=== PATIENT | female | born 1945 | race Caucasian/White ===

== ENCOUNTER 2016-11-09 22:56 | Inpatient (IN) | payer OTHER ==
[~2016-11-09] VITALS: Ht 153.7 cm; Wt 53.5 kg
[~2016-11-09 22:56] MED LIST: ATV5 PO; METO25TA56 PO; ONDA4TAB46 PO; ZNTT/150 PO
--- NOTE | 2016-11-09 23:32 | EMERGENCY ROOM VISIT NOTE ---
History Report prepared by Summer: Clemencia Ramirez Under the Supervision of: Dr. Silvino Grant M.D. First contact with patient: 23:23 Chief Complaint: NEURO SYMPTOMS Stated Complaint: STRANGE FEELING/NUMBNESS R HAND,LEGS,FACE Nursing Triage Summary: Patient reports new onset of tinglyness in extremities. Patient reports history of reynauds disease. History of Present Illness The patient is a 70 year old female who presents to the Emergency Room with complaints of numbness in her right hand. She also reports having tingling in her legs bilaterally and her face. She states that her symptoms started on October 24. The patient has a history of arthritis and Raynaud's disease. She also reports having a headache and nausea, but denies having shortness of breath and chest pain. Source of History: patient Onset: October 24 Position: hand (right) Quality: numbness Associated Symptoms: + headache, + nausea, No chest pain, No SOB Review of Systems See HPI for pertinent positives & negatives. A total of 10 systems reviewed and were otherwise negative. Past Medical & Surgical Medical Problems: (1) TIA (transient ischemic attack) Family History No pertinent family history stated. Social History Smoking Status: Never Smoker Marital Status: Current/Historical Medications Scheduled Calcium W/ Magnesium (Calcium Magnesium 750), 1 TAB PO DAILY @ NOON Cholecalciferol (Vitamin D3), 1 TAB PO DAILY Metoprolol Tartrate (Lopressor) (Lopressor), 12.5 MG PO BID Allergies Coded Allergies: No Known Allergies (Unverified , 11/10/16) Physical Exam Vital Signs Date Time Temp Pulse Resp B/P (MAP) Pulse Ox O2 Delivery O2 Flow Rate FiO2 11/10/16 00:53 78 18 175/89 98 Room Air 11/09/16 23:26 94 11/09/16 23:03 36.4 86 18 208/99 98 Room Air Physical Exam GENERAL: Patient is anxious appearing and in no acute distress. HEENT: No acute trauma, normocephalic atraumatic, mucous membranes moist, no nasal congestion, no scleral icterus. NECK: No stridor, no adenopathy, no meningismus, trachea is midline. LUNGS: No dyspnea. Clear to auscultation and equal bilaterally. No wheeze, no rhonchi. HEART: Regular rate and rhythm. No murmurs, rubs, gallops appreciated. ABDOMEN: Soft, nontender, bowel sounds positive, no masses appreciated, no peritonitis. BACK: No midline tenderness, no CVA tenderness EXTREMITIES: Normal motion all extremities, no cyanosis, no edema. NEUROLOGIC: Alert and oriented, no acute motor or sensory deficits, no focal weakness, cranial nerves grossly intact. SKIN: Slight mottling of right hand which she says is chronic. Medical Decision & Procedures ER Provider Diagnostic Interpretation: X ray results are stated below per my interpretation and the radiologist's interpretation. X ray results are stated below per my interpretation: Chest: 1 view: No infiltrate, no effusion, normal cardiac border. Mild flattening of diaphragms. CT results as stated below per interpretation by me and the radiologist: CT HEAD: No ICH, mass effect or edema. No evidence of acute cortical stroke. Periventricular small vessel ischemic change. Left maxillary mucosal thickening. Laboratory Results Test 11/09/16 23:50 RDW Standard Deviation 41.0 fL (36.4-46.3) RDW Coefficient of Variation 12.8 % (11.5-14.5) White Blood Count 7.04 K/uL (4.8-10.8) Red Blood Count 4.57 M/uL (4.2-5.4) Hemoglobin 13.7 g/dL (12.0-16.0) Hematocrit 39.7 % (37-47) Mean Corpuscular Volume 86.9 fL (80-100) Mean Corpuscular Hemoglobin 30.0 pg (25-34) Mean Corpuscular Hemoglobin Concent 34.5 g/dl (32-36) Platelet Count 227 K/uL (130-400) Mean Platelet Volume 11.0 fL (7.4-10.4) Neutrophils (%) (Auto) 78.6 % Lymphocytes (%) (Auto) 13.6 % Monocytes (%) (Auto) 7.4 % Eosinophils (%) (Auto) 0.0 % Basophils (%) (Auto) 0.3 % Neutrophils # (Auto) 5.53 K/uL (1.4-6.5) Lymphocytes # (Auto) 0.96 K/uL (1.2-3.4) Monocytes # (Auto) 0.52 K/uL (0.11-0.59) Eosinophils # (Auto) 0.00 K/uL (0-0.5) Basophils # (Auto) 0.02 K/uL (0-0.2) Immature Granulocyte % (Auto) 0.1 % Immature Granulocyte # (Auto) 0.01 K/uL (0.00-0.02) Erythrocyte Sedimentation Rate 18 mm/hr (0-21) Prothrombin Time 10.3 SECONDS (9.0-12.0) Prothromb Time International Ratio 1.0 (0.9-1.1) Activated Partial Thromboplast Time 30.6 SECONDS (21.0-31.0) Partial Thromboplastin Ratio 1.2 Est Creatinine Clear Calc Drug Dose 51.8 ml/min Magnesium Level 2.2 mg/dl (1.8-2.4) Total Bilirubin 0.5 mg/dl (0.2-1) Direct Bilirubin 0.1 mg/dl (0-0.2) Aspartate Amino Transf (AST/SGOT) 27 U/L (15-37) Alanine Aminotransferase (ALT/SGPT) 31 U/L (12-78) Alkaline Phosphatase 76 U/L (45-117) Troponin I < 0.015 ng/ml (0-0.045) C-Reactive Protein < 0.29 mg/dl (0-0.29) Total Protein 8.6 gm/dl (6.4-8.2) Albumin 4.5 gm/dl (3.4-5.0) Thyroid Stimulating Hormone (TSH) 2.040 uIu/ml (0.300-4.500) Lyme Disease IgG Antibody NEG (NEG) Lyme Disease IgM Antibody NEG (NEG) Laboratory results as reviewed by me. Medications Administered Medications (Trade) Dose Ordered Sig/Dru Route Start Time Stop Time Status Last Admin Dose Admin Labetalol HCl (Normodyne IV) 10 mg NOW STAT IV 11/09/16 23:33 11/09/16 23:36 DC 11/10/16 00:00 10 MG Potassium Chloride (Klor-Con M10) 40 meq NOW STAT PO 11/10/16 00:54 11/10/16 01:00 DC 11/10/16 00:54 40 MEQ ECG Indication: other (tingling in extremities ) Rate (beats per minute): 85 Rhythm: normal sinus Findings: no acute ischemic change, no ectopy, other (septal Q Waves; left ventricular hypertrophy ) Comparison ECG Date: no prior available ED Course 2324: The patient was evaluated in room C4. A complete history and physical exam was performed. 2233: Ordered Labetalol HCl 10 mg IV. 0049: The patient reports that her symptoms have resolved with improvement of her blood pressure. 0105: Upon reevaluation, the patient is resting comfortably. Discussed results and treatment plan with the patient. She verbalized understanding and agreement with the treatment plan. The patient will be evaluated for further management. Medical Decision Differential: Sepsis, Infectious (UTI/Pneumonia/Meningitis/etc), Metabolic/ Electrolyte Abnormality, Cardiac, Hepatic, Endocrine, Toxicologic, Neurologic, amongst other pathologies entertained. Medication Reconciliation: I attest that I have personally reviewed the patient 's current medication list. Blood pressure screening: Patient was found to have an elevated blood pressure and was referred to their primary doctor for recheck and further treatment. 70 yr old female arrives with right arm paresthesias along with periodic other paresthesias over the last 2 weeks. Associated nausea/headache. No evidence meningitis. No history to suggest dissection. CT Head negative for acute findings. Quite hypertensive and symptoms resolved with improvement in BP. No acute neuro deficits on examination. I do not feel she is TPA candidate given minimal symptoms and 2 weeks of on and off symptoms. I feel given her history she will need rule out for stroke, though discussed with her that there are multiple other causes that could result in her symptoms. Consults Time Called: 48 Consulting Physician: Dr. Castro- Internal Medicine Returned Call: 49 Discussed the patient's case. The patient will be evaluated for further treatment and disposition. Impression Primary Impression: Hypertensive emergency Additional Impression: Paresthesia of right arm Scribe Attestation The scribe's documentation has been prepared under my direction and personally reviewed by me in its entirety. I confirm that the note above accurately reflects all work, treatment, procedures, and medical decision making performed by me. Departure Information Dispostion Being Evaluated By Hospitalist Referrals Prema Stack D.O. (PCP) Patient Instructions My [facility] Problem Qualifiers
[2016-11-09] MEDS ORDERED: LABETALOL HCL IV 5 MG/ML 20ML IV STA (23:33)
[2016-11-10] VITALS (8 sets, daily range): BP systolic 131–179; BP diastolic 66–81; PULSE 63–85; TEMP 36.4–37.1; O2SAT 97–100; Ht 153.7 cm; Wt 53.5 kg
[2016-11-10 00:07] LABS: BASO % 0.3 %; BASO ABS # 0.02 K/uL (0-0.2); COMPLETE YES; HEMATOCRIT 39.7 % (37-47); IG% 0.1 %; LYMPH % 13.6 %; LYMPH ABS # 0.96 K/uL (1.2-3.4); MEAN CELL VOLUME 86.9 fL (80-100); MEAN CORPUSCULAR HGB CONC 34.5 g/dl (32-36); MONO % 7.4 %; NEUT % 78.6 %; PLATELET COUNT 227 K/uL (130-400); RED BLOOD COUNT 4.57 M/uL (4.2-5.4); WHITE BLOOD COUNT 7.04 K/uL (4.8-10.8)
[2016-11-10] MEDS ORDERED: CHOL1000 PO (00:13)
[2016-11-10] MEDS ORDERED: CALC1TAB25 PO (00:15)
[2016-11-10 00:16] LABS: PARTIAL THROMBOPLASTIN RATIO 1.2; PROTHROMBIN TIME (PATIENT) 10.3 SECONDS (9.0-12.0)
[2016-11-10 00:34] LABS: BLOOD UREA NITROGEN 15 mg/dl (7-18); BUN/CREATININE RATIO 20.1 (10-20); CALCIUM 8.9 mg/dl (8.5-10.1); CARBON DIOXIDE 25 mmol/L (21-32); CHLORIDE 100 mmol/L (98-107); CREATININE 0.74 mg/dl (0.60-1.20); GLUCOSE 117 mg/dl (70-99); POTASSIUM 3.2 mmol/L (3.5-5.1); SODIUM 135 mmol/L (136-145)
[2016-11-10 00:38] LABS: C-REACTIVE PROTEIN < 0.29 mg/dl (0-0.29)
[2016-11-10] MEDS ORDERED: POTASSIUM CHLORIDE 10 MEQ TABCR PO STA (00:54)
[2016-11-10 01:07] LABS: LYME DISEASE AB IGG NEG (NEG); LYME DISEASE AB IGM NEG (NEG)
[2016-11-10 01:17] LABS: MAGNESIUM 2.2 mg/dl (1.8-2.4)
[2016-11-10] MEDS ORDERED: ASPIRIN 81 MG CHEW ONE (01:44)
[2016-11-10] MEDS ORDERED: NITROGLYCERIN 0.4 MG SL PER TAB CHARGE SL PRN (02:00)
[2016-11-10] MEDS ORDERED: PHARMACIST DISCHARGE MED REC CONSULT PRN (02:00)
[2016-11-10] MEDS ORDERED: ACETAMINOPHEN 325 MG TAB PO PRN (02:00)
[2016-11-10] MEDS ORDERED: ASPIRIN 81 MG CHEW PO STA (02:10)
[2016-11-10] MEDS ORDERED: NSS + 20MEQ KCL 1000ML 1,000 ML IV SCH (02:15)
[2016-11-10 02:25] LABS: AST/SGOT 27 U/L (15-37)
[2016-11-10] MEDS ORDERED: IV FLUIDS COMPLETED PRN (02:30)
[2016-11-10 02:31] LABS: ALKALINE PHOSPHATASE 76 U/L (45-117); ALT/SGPT 31 U/L (12-78)
[2016-11-10] MEDS ORDERED: ENOXAPARIN 30 MG/0.3 ML SYR SC SCH (04:00)
[2016-11-10] MEDS ORDERED: NSS + 20MEQ KCL 1000ML 1,000 ML IV ONE (04:15)
--- NOTE | 2016-11-10 07:06 | DIAGNOSTIC IMAGING REPORT ---
HEAD CT NONCONTRAST CT DOSE: 537.48 mGy.cm HISTORY: right arm/leg paresthesias TECHNIQUE: Multiaxial CT images of the head were performed without the use of intravenous contrast. Automated exposure control was utilized for this study. Comparison: None. Findings: Mild mucosal thickening within the left maxillary sinus. The calvarium and skull base are intact. There is no mass, hematoma, midline shift, acute infarct. White matter hypodensity is nonspecific but suggestive of microvascular ischemic change. The ventricles and sulci demonstrate mild age-related involutional changes. Impression: No acute intracranial abnormality. Atrophy and microvascular ischemic changes. Electronically signed by: Nicho Garvey M.D. 11/10/2016 7:05 AM Dictated Date/Time: 11/10/2016 7:03 AM
[2016-11-10 07:07] LABS: BASO % 0.7 %; BASO ABS # 0.04 K/uL (0-0.2); COMPLETE YES; EOS % 0.4 %; HEMATOCRIT 36.1 % (37-47); IG% 0.2 %; LYMPH % 25.6 %; LYMPH ABS # 1.39 K/uL (1.2-3.4); MEAN CORPUSCULAR HEMOGLOBIN 28.9 pg (25-34); MEAN CORPUSCULAR HGB CONC 33.2 g/dl (32-36); MEAN PLATELET VOLUME 10.6 fL (7.4-10.4); MONO % 10.3 %; NEUT % 62.8 %; PLATELET COUNT 225 K/uL (130-400); RED BLOOD COUNT 4.15 M/uL (4.2-5.4); WHITE BLOOD COUNT 5.42 K/uL (4.8-10.8)
[2016-11-10 07:47] LABS: BUN/CREATININE RATIO 16.8 (10-20); CALCIUM 8.1 mg/dl (8.5-10.1); CHOLESTEROL/HDL RATIO 2.2; CREATININE 0.61 mg/dl (0.60-1.20); POTASSIUM 4.2 mmol/L (3.5-5.1)
--- NOTE | 2016-11-10 08:49 | DIAGNOSTIC IMAGING REPORT ---
CHEST ONE VIEW PORTABLE HISTORY: stroke symptoms COMPARISON: None. FINDINGS: The lungs are clear. Cardiac silhouette is normal in size. No pleural effusions. No pneumothorax. IMPRESSION: No acute process. Electronically signed by: Nicho Garvey M.D. 11/10/2016 8:48 AM Dictated Date/Time: 11/10/2016 8:44 AM
--- NOTE | 2016-11-10 08:52 | HISTORY & PHYSICAL EXAMINATION ---
DATE OF ADMISSION: 11/10/2016 PATIENT'S PRIMARY CARE DOCTOR: Dr. Prema Stack CHIEF COMPLAINT: Numbness in the face, hands and lower extremities. HISTORY OF PRESENT ILLNESS: Medical history is significant for hypertension, hyperlipidemia, anxiety as per records and Raynaud's syndrome. In the last 2 weeks, the patient noted tingling and numbness in the right upper extremity, both sides of her face and legs. Transient symptoms followed by four more recurrences in the next 2 weeks. Last night, the symptoms distressing, more prolonged. achy frontal ZHANG sx She admits to some stress at home. Patient was brought to the Emergency Room. Had subsequent improvement in symptoms. MEDICAL HISTORY: As above. Recent Keflex course for R thumb cellulitis, improved. SURGERIES: She has had a bowel obstruction surgery, appendectomy and gynecologic procedures. HOME MEDICATIONS: Include; metoprolol, vitamin D, calcium. ALLERGIES: No known drug allergies. FAMILY HISTORY: Stroke. PERSONAL SOCIAL HISTORY: Nonsmoker. No chronic intake of alcoholic beverages. Retired RN. REVIEW OF SYSTEMS: As per HPI, all other ROS negative. PHYSICAL EXAMINATION: VITAL SIGNS: Blood pressure was noted to be 208/99 later 178/89, pulse rate 94, RR 20 T 37 O2sats 98 on room air. GENERAL: Noted to be slightly anxious, in no respiratory distress, looks younger for stated age. SKIN: Normal color. HEENT: [place] palpebral conjunctivae. Dry mucosa. NECK: No JVD. Supple. CHEST: Clear to auscultation. HEART: Regular rate and rhythm. ABDOMEN: Soft. NT EXTREMITIES: min R thumb swelling. min tenderness NEUROLOGIC: No gross focality. LABORATORIES: Hemoglobin was noted to be 13.7, hematocrit 39.7, white cell count 7 and platelets 227. Sodium 135, K 3.2 chloride 100, CO2 28, BUN 15, creatinine 0.7 and glucose was noted to be 117. CT of the head initial read no acute pathology. Chest x-ray as per my interpretation : mild hyperinflation. EKG as per my interpretation; rate 85, normal sinus rhythm, left atrial enlargement, LVH, poor R-wave progression, septal infarct. January 2016 lipid panel; cholesterol 245, LDL 141, HDL 92, TG 70 ASSESSMENT: 1. Recurrent transient ischemic attack symptoms. 2. Hypertensive urgency secondary to above. 3. Hyperlipidemia, not on statin therapy. 4. Hypokalemia secondary to diarrhea, rule out Clostridium difficile recent Keflex rx for cellulitis. PLAN: Observation PCU, neuro checks MRI/MRA head RE recurrent TIAs ASA for now for secondary stroke prevention pending MRI results. Check lipid profile. Replace potassium. stool c. diff. DVT prophylaxis, Lovenox subQ. Full code. Patient requesting to be set up with Dr. Mckeon for PCP services upon discharge from the hospital. SAMUEL
[2016-11-10] MEDS: ENOXAPARIN 30 MG/0.3 ML SYR SC SCH ×2 (09:00→10:29)
[2016-11-10] MEDS: METOPROLOL TARTRATE 25 MG TAB PO SCH ×2 (10:28→21:00)
--- NOTE | 2016-11-10 10:49 | Progress Note ---
Medicine Progress Note Date & Time of Visit: Nov 10, 2016 at 10:42. Subjective patient seen resting in bed comfortable in good spirits states she had burning sensation on her right hand overnight, lasting few hours , resolved otherwise no other new focal neuro symptoms no chest pain, dyspnea, palpitations, dizziness states she had some nausea this morning, no vomiting no other symptoms would like to move more today Objective Last 8 Hrs Date Time Temp Pulse Resp B/P (MAP) Pulse Ox O2 Delivery O2 Flow Rate FiO2 11/10/16 07:27 36.6 77 17 147/75 (99) 97 Room Air 11/10/16 04:00 Room Air 11/10/16 03:41 36.5 70 20 162/66 (98) 98 Room Air Physical Exam: General- oriented x 3, not in distress, speaks in sentences with no effort Head- atraumatic Eyes- EOMI, anicteric ENT- oropharynx clear Neck- supple, no JVD, no adenopathy, no thyromegaly Lungs- clear breath sounds bilaterally, no rales/wheezes Heart- regular rhythm; no murmur, normal rate Abdomen- normal bowel sounds, soft, nontender Extremities- no pretibial edema, no calf tenderness; peripheral pulses intact right hand- small areas of petechiae on fingers warm, good pulses Neuro- alert, oriented x 3; EOMI; no facial palsy; no dysarthria; motor 5/5 bilaterally; sensation 100% on all ext Skin- warm & dry Laboratory Results: Last 24 Hours Test 11/09/16 23:50 11/10/16 06:57 White Blood Count 7.04 K/uL 5.42 K/uL Red Blood Count 4.57 M/uL 4.15 M/uL Hemoglobin 13.7 g/dL 12.0 g/dL Hematocrit 39.7 % 36.1 % Mean Corpuscular Volume 86.9 fL 87.0 fL Mean Corpuscular Hemoglobin 30.0 pg 28.9 pg Mean Corpuscular Hemoglobin Concent 34.5 g/dl 33.2 g/dl Platelet Count 227 K/uL 225 K/uL Mean Platelet Volume 11.0 fL 10.6 fL Neutrophils (%) (Auto) 78.6 % 62.8 % Lymphocytes (%) (Auto) 13.6 % 25.6 % Monocytes (%) (Auto) 7.4 % 10.3 % Eosinophils (%) (Auto) 0.0 % 0.4 % Basophils (%) (Auto) 0.3 % 0.7 % Neutrophils # (Auto) 5.53 K/uL 3.40 K/uL Lymphocytes # (Auto) 0.96 K/uL 1.39 K/uL Monocytes # (Auto) 0.52 K/uL 0.56 K/uL Eosinophils # (Auto) 0.00 K/uL 0.02 K/uL Basophils # (Auto) 0.02 K/uL 0.04 K/uL RDW Standard Deviation 41.0 fL 41.1 fL RDW Coefficient of Variation 12.8 % 12.8 % Immature Granulocyte % (Auto) 0.1 % 0.2 % Immature Granulocyte # (Auto) 0.01 K/uL 0.01 K/uL Erythrocyte Sedimentation Rate 18 mm/hr Prothrombin Time 10.3 SECONDS Prothromb Time International Ratio 1.0 Activated Partial Thromboplast Time 30.6 SECONDS Partial Thromboplastin Ratio 1.2 Sodium Level 135 mmol/L 138 mmol/L Potassium Level 3.2 mmol/L 4.2 mmol/L Chloride Level 100 mmol/L 105 mmol/L Carbon Dioxide Level 25 mmol/L 26 mmol/L Anion Gap 10.0 mmol/L 7.0 mmol/L Blood Urea Nitrogen 15 mg/dl 10 mg/dl Creatinine 0.74 mg/dl 0.61 mg/dl Est Creatinine Clear Calc Drug Dose 51.8 ml/min 61.4 ml/min Estimated GFR () 93.8 105.0 Estimated GFR (Non- 80.9 90.6 BUN/Creatinine Ratio 20.1 16.8 Random Glucose 117 mg/dl 97 mg/dl Calcium Level 8.9 mg/dl 8.1 mg/dl Magnesium Level 2.2 mg/dl Total Bilirubin 0.5 mg/dl Direct Bilirubin 0.1 mg/dl Aspartate Amino Transf (AST/SGOT) 27 U/L Alanine Aminotransferase (ALT/SGPT) 31 U/L Alkaline Phosphatase 76 U/L Troponin I < 0.015 ng/ml C-Reactive Protein < 0.29 mg/dl Total Protein 8.6 gm/dl Albumin 4.5 gm/dl Thyroid Stimulating Hormone (TSH) 2.040 uIu/ml Lyme Disease IgG Antibody NEG Lyme Disease IgM Antibody NEG Triglycerides Level 34 mg/dl Cholesterol Level 184 mg/dl HDL Cholesterol 84 mg/dl LDL Cholesterol, Calculated 93 mg/dl VLDL Cholesterol, Calculated 7 mg/dl Cholesterol/HDL Ratio 2.2 Assessment & Plan 70 year old female with history of hypertension, Raynaud's presenting with episodes of paresthesias on the face and extremities. PARESTHESIAS, FACE AND EXTREMITIES - r/o TIAs, CVA from Raynaud's? - CT head: microvascular changes Brain MRI, MRA: pending Carotid Doppler US: pending - Aspirin 81mg started ff up studies appreciate Neuro input Hypertensive urgency secondary to above -- received 1 dose of Labetalol -- BP improving on usual Metoprolol BID Hyperlipidemia, not on statin therapy. -- LDL 93 monitor as outpatient Hypokalemia secondary to diarrhea, rule out Clostridium difficile recent Keflex rx for cellulitis. -- repleted Mg normal -- monitor DVT prophylaxis, Lovenox subQ. Full code. Patient requesting to be set up with Dr. Mckeon for PCP services upon discharge from the hospital. Current Inpatient Medications: Current Inpatient Medications Medications (Trade) Dose Ordered Sig/Dru Route Start Time Stop Time Status Last Admin Dose Admin Acetaminophen (Tylenol Tab) 650 mg Q4H PRN PO 11/10/16 02:00 12/10/16 01:59 Nitroglycerin (Nitrostat Tab) 0.4 mg UD PRN SL 11/10/16 02:00 12/10/16 01:59 Aspirin (Ecotrin Tab) 81 mg QAM PO 11/11/16 09:00 12/11/16 08:59 Miscellaneous Information (Pharmacist Discharge Med Rec Consult) 1 ea UD PRN N/A 11/10/16 02:00 12/10/16 01:59 Metoprolol Tartrate (Lopressor Tab) 12.5 mg BID PO 11/10/16 09:00 12/10/16 08:59 11/10/16 10:28 12.5 MG Miscellaneous (Iv Fluids Completed) 1 ea PRN PRN N/A 11/10/16 02:30 11/10/17 02:29 Enoxaparin Sodium (Lovenox Inj) 30 mg Q24H SC 11/10/16 09:00 12/10/16 08:59 Potassium Chloride/Sodium Chloride 1,000 ml @ 50 mls/hr Q20H ONCE IV 11/10/16 04:15 12/10/16 02:14 Ondansetron HCl (Zofran Inj) 4 mg Q6H PRN IV. 11/10/16 10:00 12/10/16 09:59
--- NOTE | 2016-11-10 13:46 | DIAGNOSTIC IMAGING REPORT ---
Brain MRA HISTORY: Right arm and leg paresthesias. Stroke - Attention to [place] TECHNIQUE: 3-D [id number] MRA of the brain was performed without contrast. COMPARISON STUDY: None. FINDINGS: Visualized intracranial internal carotid arteries, distal vertebral arteries, and basilar artery are widely patent. There is no significant stenosis, occlusion, or aneurysm seen within the bilateral ACAs, MCAs, or molasses preparer. IMPRESSION: No significant stenosis, occlusion, or aneurysm within the [place]. Electronically signed by: Nicho Garvey M.D. 11/10/2016 1:44 PM Dictated Date/Time: 11/10/2016 1:42 PM
--- NOTE | 2016-11-10 14:20 | DIAGNOSTIC IMAGING REPORT ---
BILATERAL CAROTID DOPPLER STUDY HISTORY: Right arm and leg paresthesias. r/o tia/cva COMPARISON: None. TECHNIQUE: Real-time, grayscale, and color Doppler sonography of the carotid arteries was performed. Imaging reviewed in the transverse and longitudinal planes. All measurements were calculated based on NASCET criteria. FINDINGS: Antegrade flow is seen in the bilateral vertebral arteries. The brachial pressures are hemodynamically similar. The peak systolic velocity within the right ICA is 64 cm/s. The right systolic ratio is 1. The peak systolic velocity within the left ICA is 91 cm/s. The left systolic ratio is 1.3. IMPRESSION: No hemodynamically significant stenosis seen within the carotid arteries. Electronically signed by: Nicho Garvey M.D. 11/10/2016 2:19 PM Dictated Date/Time: 11/10/2016 2:18 PM
--- NOTE | 2016-11-10 14:31 | DIAGNOSTIC IMAGING REPORT ---
Brain MRI WITHOUT CONTRAST HISTORY: Right-sided arm and face paresthesias. Stroke TECHNIQUE: Multiplanar multisequence MRI of the brain was performed without the use of contrast. COMPARISON STUDY: Head CT 11/10/2016. FINDINGS: There is no mass, hematoma, midline shift, or acute infarct. Mild mucosal thickening within the left maxillary sinus. The mastoid air cells are clear. The ventricles and sulci are within normal limits. Scattered foci of T2 hyperintensity seen within the periventricular and subcortical white matter are nonspecific but suggestive of mild microvascular ischemic changes. The major vascular flow voids at the skull base are well-maintained. IMPRESSION: No acute intracranial abnormality. Scattered foci of T2 hyperintensity seen within the periventricular and subcortical white matter are nonspecific but favor microvascular ischemic change. Electronically signed by: Nicho Garvey M.D. 11/10/2016 2:14 PM Dictated Date/Time: 11/10/2016 2:09 PM
--- NOTE | 2016-11-10 16:03 | NEUROLOGY CONSULTATION ---
DATE OF CONSULTATION: 11/10/2016 REASON FOR CONSULTATION: Possible transient ischemic attack. 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 In early September, she was treated for cellulitis of her right thumb with Keflex for 10 days. Beginning about 2-1/2 weeks ago, the patient was holding something, I believe a flowerpot. The right hand became tingly and then fairly soon thereafter, both legs began tingling and the right face tingled. This lasted 20 minutes, was not accompanied by headache or any other neurologic symptoms. She may have had some palpitations accompanying that. She recovered without residual. She has intermittently had the same symptoms, although for the most part it begins with tingling in the right hand, then tingling in both legs and tingling in the entire face. There is again no headache. No diplopia, dysarthria, dysphagia, vertigo, unilateral weakness, numbness or facial droop. She has recently been well other than the cellulitis. She lost several pounds while taking Keflex. On Friday night, she noted her right pinky felt cold. She had the aforementioned tingling. She felt uneasy. She had the facial tingling and some mild nausea, again lasting a typical amount of time. She has not had any recent head or neck trauma, chiropractic manipulation, medical or dental procedures. She has not had any chest pain. Occasional palpitations. No shortness of breath. No peripheral edema. PAST MEDICAL HISTORY: As above. No history of [place], stroke, TIA, cancer. PAST SURGICAL HISTORY: Volvulus exploratory for possible bowel obstruction, appendectomy, D&E, ectopic . HOME MEDICATIONS: Metoprolol, flaxseed, vitamin D, calcium. ALLERGIES: No allergies. FAMILY HISTORY: Mother had a carotid endarterectomy and of a primary peritoneal carcinomatosis. Father had stroke, coronary artery disease. Brother, renal cell carcinoma. A sister with glomerulonephritis. REVIEW OF SYSTEMS: As above. LABORATORY DATA: White count 7, H&H 13.7/39, platelet count 227. Sed rate 18. PT 10.3, PTT 30.6. Sodium 135, potassium 3.2, BUN and creatinine 15/0.74. Random glucose 117. Transaminases normal. Total protein 8.6. TSH 2. Serology negative for Lyme. Electrocardiogram: Sinus rhythm, possible left atrial enlargement, left ventricular hypertrophy, cannot rule out septal infarct. CT of the head noncontrast, atrophy and microvascular ischemic changes. PHYSICAL EXAMINATION: VITAL SIGNS: 36.6, 77, 17, 147/75, 97%. GENERAL: The patient is awake and alert. Her speech and language are unremarkable. There is no aphasia. No right/left confusion. Fund of knowledge is excellent. NECK: There are no carotid bruits. HEART: No heart murmurs. Regular rate and rhythm. LUNGS: Clear. ABDOMEN: Soft and nontender. EXTREMITIES: No calf swelling or tenderness is noted. Peripheral pulses in the feet are intact. No temporal artery tenderness is noted. Normal temporal artery pulsation. HEENT: Head is normocephalic, atraumatic. Pupils are equal, round, reactive to light. The optic nerves are unremarkable. There are normal forbes, motility, facial sensation and symmetry. Speech and language are normal. Tongue is midline. Motor: No resting tremor or cogwheel rigidity. Full strength, no drift. Normal rapid alternating movements. Symmetric reflexes. Downgoing toes. [id number] is mildly tremulous. Pbyy-nv-[id number] is normal. Sensation is intact to light touch, temperature and vibration. Tinel's is positive over the right median nerve. IMPRESSION: Recurrent episodes and frequent recurrent episodes of paresthesias in face, right hand and bilateral legs leg, the localization of which, given their extent and distribution would have to be brainstem without other brainstem signs or symptoms. PLAN: MRI brain, I think that should be revealing if this is ischemic. MRA of the neck and [place]. The patient declines any IV dye because her sister has had glomerulonephritis. If the quality of the MRA of the neck is suboptimal, then the patient will need a carotid ultrasound. I agree with echocardiography and telemetric monitoring. I would check her lipid status and if her lipids are elevated, would recommend statin therapy, with a goal LDL of less than 70. I see no significant electrolyte imbalance that would account for her neurologic symptoms. Antiplatelet therapy with aspirin is very reasonable. [facility]
[2016-11-11] VITALS (8 sets, daily range): BP systolic 156–200; BP diastolic 77–94; PULSE 62–81; TEMP 36.4–36.8; O2SAT 96–99
[2016-11-11 06:17] LABS: BUN/CREATININE RATIO 20.6 (10-20); CALCIUM 8.3 mg/dl (8.5-10.1); CREATININE 0.77 mg/dl (0.60-1.20); MAGNESIUM 2.2 mg/dl (1.8-2.4); POTASSIUM 3.6 mmol/L (3.5-5.1)
[2016-11-11] MEDS: METOPROLOL TARTRATE 25 MG TAB PO SCH ×2 (08:31→17:02)
[2016-11-11] MEDS: ASPIRIN 81 MG ECTAB PO SCH (08:31)
[2016-11-11] MEDS: ENOXAPARIN 30 MG/0.3 ML SYR SC SCH (08:31)
--- NOTE | 2016-11-11 10:25 | Progress Note ---
Medicine Progress Note Date & Time of Visit: Nov 11, 2016 at 10:19. Subjective seen resting in bed, comfortable states that last night, when awakened for BP check, patient noted burning/ paresthesias on her right hand fingers (except thumb) resolved when she woke up this morning no other focal neuro deficits denies other symptoms Objective Last 8 Hrs Date Time Temp Pulse Resp B/P (MAP) Pulse Ox O2 Delivery O2 Flow Rate FiO2 11/11/16 08:00 Room Air 11/11/16 07:45 36.8 80 18 160/94 (116) 96 11/11/16 04:00 Room Air 11/11/16 03:40 36.6 81 16 185/77 (113) 99 Room Air 182/90 (120) Physical Exam: General- oriented x 3, not in distress, speaks in sentences with no effort Eyes- anicteric ENT- oropharynx clear Neck- no JVD Lungs- clear breath sounds no rales/wheezes b/l Heart- regular rhythm; no murmur, normal rate Abdomen- normal bowel sounds, soft, nontender Extremities- no pretibial edema, no calf tenderness; peripheral pulses intact right hand- no erythema/cyanosis/ swelling/tenderness warm, good radial pulse Neuro- alert, oriented x 3; no gross focal neuro deficits Skin- warm & dry Laboratory Results: Last 24 Hours Test 11/11/16 05:20 Sodium Level 143 mmol/L Potassium Level 3.6 mmol/L Chloride Level 109 mmol/L Carbon Dioxide Level 26 mmol/L Anion Gap 8.0 mmol/L Blood Urea Nitrogen 16 mg/dl Creatinine 0.77 mg/dl Est Creatinine Clear Calc Drug Dose 48.7 ml/min Estimated GFR () 89.4 Estimated GFR (Non- 77.1 BUN/Creatinine Ratio 20.6 Random Glucose 90 mg/dl Calcium Level 8.3 mg/dl Magnesium Level 2.2 mg/dl Assessment & Plan 70 year old female with history of hypertension, Raynaud's presenting with episodes of paresthesias on the face and extremities. PARESTHESIAS, FACE AND EXTREMITIES - acute CVA ruled out Raynaud's attacks? - CT head: microvascular changes Brain MRI, MRA: mild microvascular ischemic changes Carotid Doppler US: unrevealing - Aspirin 81mg started - will add Norvasc 2.5mg po daily may need Rheum outpatient referral Hypertensive urgency secondary to above -- received 1 dose of Labetalol -- BP improving on usual Metoprolol BID Amlodipine 2.5mg po daily added for Raynaud's and better BP control Hyperlipidemia, not on statin therapy. -- LDL 93 HDL 84 monitor as outpatient Hypokalemia secondary to diarrhea, rule out Clostridium difficile recent Keflex rx for cellulitis. -- repleted Mg normal -- K and Mg normal -- monitor as outpatient DVT prophylaxis, Lovenox subQ. Full code. Dispo pending anticipate d/c home today when cleared by Neurology Patient requesting to be set up with Dr. Mckeon or Dr. Ruiz for PCP services upon discharge from the hospital. Current Inpatient Medications: Current Inpatient Medications Medications (Trade) Dose Ordered Sig/Dru Route Start Time Stop Time Status Last Admin Dose Admin Acetaminophen (Tylenol Tab) 650 mg Q4H PRN PO 11/10/16 02:00 12/10/16 01:59 Nitroglycerin (Nitrostat Tab) 0.4 mg UD PRN SL 11/10/16 02:00 12/10/16 01:59 Aspirin (Ecotrin Tab) 81 mg QAM PO 11/11/16 09:00 12/11/16 08:59 11/11/16 08:31 81 MG Miscellaneous Information (Pharmacist Discharge Med Rec Consult) 1 ea UD PRN N/A 11/10/16 02:00 12/10/16 01:59 Metoprolol Tartrate (Lopressor Tab) 12.5 mg BID PO 11/10/16 09:00 12/10/16 08:59 11/11/16 08:31 12.5 MG Miscellaneous (Iv Fluids Completed) 1 ea PRN PRN N/A 11/10/16 02:30 11/10/17 02:29 Enoxaparin Sodium (Lovenox Inj) 30 mg Q24H SC 11/10/16 09:00 12/10/16 08:59 Potassium Chloride/Sodium Chloride 1,000 ml @ 50 mls/hr Q20H ONCE IV 11/10/16 04:15 12/10/16 02:14 Ondansetron HCl (Zofran Inj) 4 mg Q6H PRN IV. 11/10/16 10:00 12/10/16 09:59
[2016-11-11] MEDS ORDERED: AMLODIPINE BESYLATE 5 MG TAB PO ONE (11:00)
--- NOTE | 2016-11-11 15:38 | Neurology Progress Notes ---
Neurology Progress Note Date of Service Nov 11, 2016. Subjective Rita Mendez is a 70 year old female with a PMH HTN, DL, Raynauds. She presented with numbness and tingling in her right hand and fingers. She states last night she woke due to the numbness recurring in her right fingers and in the tips of her left fingers. her blood pressure was also elevated. She states today she was given Norvasc which helped with symptoms and also made her warm. She thinks she will be discharged to day. denies CP, SOB, abdominal pain, weakness, current numbness tingling, N,V Objective Date Time Temp Pulse Resp B/P (MAP) Pulse Ox O2 Delivery O2 Flow Rate FiO2 11/11/16 12:30 73 156/81 (106) 11/11/16 12:00 Room Air 11/11/16 08:00 Room Air 11/11/16 07:45 36.8 80 18 160/94 (116) 96 11/11/16 04:00 Room Air 11/11/16 03:40 36.6 81 16 185/77 (113) 99 Room Air 182/90 (120) 11/11/16 00:02 Room Air 11/10/16 23:16 36.5 63 22 168/79 (108) 100 Room Air 168/80 (109) 11/10/16 20:00 Room Air 11/10/16 19:09 37.1 81 18 131/70 (90) 97 Room Air 11/10/16 16:00 97 Room Air Last 24 Hours Test 11/11/16 05:20 Sodium Level 143 mmol/L Potassium Level 3.6 mmol/L Chloride Level 109 mmol/L Carbon Dioxide Level 26 mmol/L Anion Gap 8.0 mmol/L Blood Urea Nitrogen 16 mg/dl Creatinine 0.77 mg/dl Est Creatinine Clear Calc Drug Dose 48.7 ml/min Estimated GFR () 89.4 Estimated GFR (Non- 77.1 BUN/Creatinine Ratio 20.6 Random Glucose 90 mg/dl Calcium Level 8.3 mg/dl Magnesium Level 2.2 mg/dl Imaging: MRI brain -No acute intracranial abnormality. Scattered foci of T2 hyperintensity seen within the periventricular and subcortical white matter are nonspecific but favor microvascular ischemic change. Exam: Physical Exam: Constitutional:ppearance nourished, healthy and normal Ears, Nose, Mouth and Throat: mucous membranes moist, no injection and skin normal, eyes normal Cardiovascular: normal S-1 and S-2 and regular rate and rhythm Respiratory: clear to auscultation (CTA) and no rales, rhonchi or wheeze Musculoskeletal: no peripheral edema and good distal pulses Skin: no stigmata of neurocutaneous disease noted and normal and intact Eyes: extraocular muscles intact (EOMI) and pupils equal, round and reactive to light (PERRL) NEUROLOGIC EXAMINATION: Mental status: Alert and interactive Oriented to full date and location Oriented to person Speech fluent with no evidence of aphasia Cranial Nerves smile eye brow raise symmetric, tongue midline Coordination: finger to nose without bi pass or tremor Gait/Stance: Posture lying in bed Motor: Negative for pronator drift of out stretched arms with eyes closed. Strength: biceps triceps hand load dispatcher 5/5 bilaterally, hip flex 5/5 Current Inpatient Medications Medications (Trade) Dose Ordered Sig/Dru Route Start Time Stop Time Status Last Admin Dose Admin Acetaminophen (Tylenol Tab) 650 mg Q4H PRN PO 11/10/16 02:00 12/10/16 01:59 Nitroglycerin (Nitrostat Tab) 0.4 mg UD PRN SL 11/10/16 02:00 12/10/16 01:59 Aspirin (Ecotrin Tab) 81 mg QAM PO 11/11/16 09:00 12/11/16 08:59 11/11/16 08:31 81 MG Miscellaneous Information (Pharmacist Discharge Med Rec Consult) 1 ea UD PRN N/A 11/10/16 02:00 12/10/16 01:59 Metoprolol Tartrate (Lopressor Tab) 12.5 mg BID PO 11/10/16 09:00 12/10/16 08:59 11/11/16 08:31 12.5 MG Miscellaneous (Iv Fluids Completed) 1 ea PRN PRN N/A 11/10/16 02:30 11/10/17 02:29 Enoxaparin Sodium (Lovenox Inj) 30 mg Q24H SC 11/10/16 09:00 12/10/16 08:59 Potassium Chloride/Sodium Chloride 1,000 ml @ 50 mls/hr Q20H ONCE IV 11/10/16 04:15 12/10/16 02:14 Ondansetron HCl (Zofran Inj) 4 mg Q6H PRN IV. 11/10/16 10:00 12/10/16 09:59 Amlodipine Besylate (Norvasc Tab) 2.5 mg QAM PO 11/12/16 09:00 12/12/16 08:59 Impression 70 year old female with numbness and tingling in right fingers and elevated blood pressure Plan 1. no acute finding on MRI brain 2. continue aspirin 81 mg for vascular protection 3. LDL <70 4. Norvasc treatment for blood pressure issues and Raynauds 5. likely discharge today 6. cock up splints bilaterally at night 7. schedule with neurology Jaida Mckenna, PAC schedule 3-4 weeks I have seen and discussed above patient with Dr Jaida Lozoya, neurology Pt seen, mri chronic vasc changes, no distal vert or basilar stenosis, etiology of sx unclear, query panic. Rec asa, risk modification, further eval if ongoing sx, ie to ER. Last evening pt awakened with tingling in bl fingers 2-4, suspect an element of CTS, wrist splints advised. CHIO Lozoya MD
[2016-11-11] MEDS ORDERED: LABETALOL HCL IV 5 MG/ML 20ML IV STA (18:02)
--- NOTE | 2016-11-11 18:20 | Progress Note ---
Progress Note Date of Service Nov 11, 2016. Progress Note patient re-evaluated received Metoprolol 12.5mg po at 5pm BP rechecked, systolic 199 only symptom is very mild headache, otherwise, conversant, telling stories no chest pain, dizziness, nausea Labetalol 10mg IV ordered added Lisinopril 5mg po in AM Julio C Virgen MD
[2016-11-11] MEDS: ONDANSETRON INJ 2 MG/ML 2 ML VIAL IV. PRN (23:40)
[2016-11-11] MEDS ORDERED: LISINOPRIL 5 MG TAB PO ONE (23:58)
[2016-11-12] VITALS (7 sets, daily range): BP systolic 158–192; BP diastolic 68–92; PULSE 63–80; TEMP 36.5–36.7; O2SAT 97–99
[2016-11-12 08:05] LABS: BUN/CREATININE RATIO 19.4 (10-20); CREATININE 0.67 mg/dl (0.60-1.20); POTASSIUM 3.6 mmol/L (3.5-5.1)
[2016-11-12] MEDS: ENOXAPARIN 30 MG/0.3 ML SYR SC SCH (08:05)
[2016-11-12] MEDS: ASPIRIN 81 MG ECTAB PO SCH (08:06)
[2016-11-12] MEDS: METOPROLOL TARTRATE 25 MG TAB PO SCH ×2 (08:06→19:37)
[2016-11-12] MEDS: ONDANSETRON INJ 2 MG/ML 2 ML VIAL IV. PRN (08:07)
[2016-11-12 08:33] LABS: CALCIUM 8.8 mg/dl (8.5-10.1)
[2016-11-12] MEDS ORDERED: LISINOPRIL 5 MG TAB PO SCH ×2 (09:00)
[2016-11-12] MEDS ORDERED: AMLODIPINE BESYLATE 5 MG TAB PO SCH (09:00)
--- NOTE | 2016-11-12 12:28 | Progress Note ---
Medicine Progress Note Date & Time of Visit: Nov 12, 2016 at 12:15. Subjective patient seen sitting up in bed, comfortable eating lunch had nausea last night, frontal headache this AM, all resolved states she feels better on my exam BP 175/81 denies dizziness, chest pain, dyspnea, palpitations, nausea ambulated in the hallways this morning with no problems no paresthesias, focal neuro symptoms no other problems Objective Last 8 Hrs Date Time Temp Pulse Resp B/P (MAP) Pulse Ox O2 Delivery O2 Flow Rate FiO2 11/12/16 11:42 36.6 67 19 186/70 (108) 98 Room Air 11/12/16 08:00 Room Air 11/12/16 07:02 36.5 71 18 178/78 (111) 98 Room Air Physical Exam: General- oriented x 3, not in distress, speaks in sentences with no effort Eyes- anicteric ENT- oropharynx clear Neck- no JVD Lungs- clear b/s bilaterally, no rales/wheezes Heart- regular rhythm; no murmur, normal rate Abdomen- normal bowel sounds, soft, nontender Extremities- no pretibial edema, no calf tenderness right hand- no erythema/cyanosis/ swelling/tenderness warm, good radial pulse Neuro- alert, oriented x 3; no gross focal neuro deficits Skin- warm & dry Laboratory Results: Last 24 Hours Test 11/12/16 07:18 Sodium Level 136 mmol/L Potassium Level 3.6 mmol/L Chloride Level 102 mmol/L Carbon Dioxide Level 27 mmol/L Anion Gap 7.0 mmol/L Blood Urea Nitrogen 13 mg/dl Creatinine 0.67 mg/dl Est Creatinine Clear Calc Drug Dose 55.9 ml/min Estimated GFR () 101.8 Estimated GFR (Non- 87.8 BUN/Creatinine Ratio 19.4 Random Glucose 97 mg/dl Calcium Level 8.8 mg/dl Magnesium Level 2.0 mg/dl Assessment & Plan 70 year old female with history of hypertension, Raynaud's presenting with episodes of paresthesias on the face and extremities. PARESTHESIAS, FACE AND EXTREMITIES - acute CVA ruled out Raynaud's attacks? - CT head: microvascular changes Brain MRI, MRA: mild microvascular ischemic changes Carotid Doppler US: unrevealing - Aspirin 81mg started - added Norvasc 2.5mg po daily--> did not tolerate (flushing, lightheaded) may need Rheum outpatient referral Hypertensive urgency -- (+) BP elevation last evening -- another labetalol dose given Lisinopril 5mg daily added BP gradually improving increase Metoprolol to 25mg BID -- check renal artery US, plasma renin/aldosterone Hyperlipidemia, not on statin therapy. -- LDL 93 HDL 84 monitor as outpatient Hypokalemia secondary to diarrhea, rule out Clostridium difficile recent Keflex rx for cellulitis. -- repleted Mg normal -- K and Mg normal -- monitor as outpatient DVT prophylaxis -- hold Lovenox for uncontrolled HTN SCDs for now Full code Dispo pending anticipate d/c home when BP trend stabilizes Current Inpatient Medications: Current Inpatient Medications Medications (Trade) Dose Ordered Sig/Dru Route Start Time Stop Time Status Last Admin Dose Admin Acetaminophen (Tylenol Tab) 650 mg Q4H PRN PO 11/10/16 02:00 12/10/16 01:59 Nitroglycerin (Nitrostat Tab) 0.4 mg UD PRN SL 11/10/16 02:00 12/10/16 01:59 Aspirin (Ecotrin Tab) 81 mg QAM PO 11/11/16 09:00 12/11/16 08:59 11/12/16 08:06 81 MG Miscellaneous (Iv Fluids Completed) 1 ea PRN PRN N/A 11/10/16 02:30 11/10/17 02:29 Enoxaparin Sodium (Lovenox Inj) 30 mg Q24H SC 11/10/16 09:00 12/10/16 08:59 Ondansetron HCl (Zofran Inj) 4 mg Q6H PRN IV. 11/10/16 10:00 12/10/16 09:59 11/12/16 08:07 4 MG Lisinopril (Zestril Tab) 5 mg QAM PO 11/12/16 09:00 12/12/16 08:59 11/12/16 09:07 5 MG Metoprolol Tartrate (Lopressor Tab) 25 mg BID PO 11/12/16 21:00 12/10/16 08:59 UNV Metoprolol Tartrate (Lopressor Tab) 12.5 mg NOW ONCE PO 11/12/16 12:15 11/12/16 12:16 UNV
[2016-11-12] MEDS ORDERED: METOPROLOL TARTRATE 25 MG TAB PO ONE (12:45)
--- NOTE | 2016-11-12 15:10 | DIAGNOSTIC IMAGING REPORT ---
Renal arterial Doppler DUPLEX RENAL ARTERY CLINICAL HISTORY: r/o renal artery stenosis hypertension TECHNIQUE: Doppler ultrasound COMPARISON STUDY: None FINDINGS: Normal arterial waveforms throughout. Normal impedance characteristics. IMPRESSION: Normal study. No evidence for renal arterial stenosis. Electronically signed by: Edward Ross M.D. 11/12/2016 3:09 PM Dictated Date/Time: 11/12/2016 3:08 PM
--- NOTE | 2016-11-12 15:57 | Neurology Progress Notes ---
Neurology Progress Note Date of Service Nov 12, 2016. Subjective Rita Mendez is a 70 year old female with a PMH HTN, DL, Raynauds. She presented with numbness and tingling in her right hand and fingers. Her blood pressure was elevated and they have been trying to get it into a normal range. She was given Norvasc but she had flushing with it and it was stopped. she was then started on metoprolol and lisinopril but she was still having blood pressures in the 178/90 range. 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 she is also having tests on her adrenal gland to see if that is functioning properly. denies CP, SOB, abdominal pain, weakness, current numbness tingling, N,V. she states her hands are warm today and she is not having any of the numbness or tingling in her hands or feet. Objective Date Time Temp Pulse Resp B/P (MAP) Pulse Ox O2 Delivery O2 Flow Rate FiO2 11/12/16 15:40 36.6 63 18 189/77 (114) 97 Room Air 172/89 (116) 11/12/16 12:00 Room Air 11/12/16 11:42 36.6 67 19 186/70 (108) 98 Room Air 11/12/16 08:00 Room Air 11/12/16 07:02 36.5 71 18 178/78 (111) 98 Room Air 11/12/16 04:11 Room Air 11/12/16 03:30 36.5 80 20 173/76 (108) 99 Room Air 172/82 (112) 11/12/16 01:17 78 158/92 (114) 11/12/16 00:00 Room Air 11/11/16 23:30 36.4 62 20 200/80 (120) 98 Room Air 194/84 (120) 11/11/16 20:00 Room Air 11/11/16 19:25 36.7 73 20 159/82 (107) 98 Room Air 11/11/16 17:59 77 189/83 (118) 11/11/16 17:34 75 186/85 (118) 190/81 (117) 191/83 (119) 11/11/16 16:00 Room Air 11/11/16 15:52 36.4 71 20 169/77 (107) 99 Room Air Last 24 Hours Test 11/12/16 07:18 Sodium Level 136 mmol/L Potassium Level 3.6 mmol/L Chloride Level 102 mmol/L Carbon Dioxide Level 27 mmol/L Anion Gap 7.0 mmol/L Blood Urea Nitrogen 13 mg/dl Creatinine 0.67 mg/dl Est Creatinine Clear Calc Drug Dose 55.9 ml/min Estimated GFR () 101.8 Estimated GFR (Non- 87.8 BUN/Creatinine Ratio 19.4 Random Glucose 97 mg/dl Calcium Level 8.8 mg/dl Magnesium Level 2.0 mg/dl Imaging: renal ultrasound-Normal study. No evidence for renal arterial stenosis. Exam: Physical Exam: Constitutional:appearance nourished, healthy and normal Ears, Nose, Mouth and Throat: mucous membranes moist, no injection and skin normal, eyes normal Cardiovascular: normal S-1 and S-2 and regular rate and rhythm Respiratory: clear to auscultation (CTA) and no rales, rhonchi or wheeze Musculoskeletal: no peripheral edema and good distal pulses Skin: no stigmata of neurocutaneous disease noted and normal and intact Eyes: extraocular muscles intact (EOMI) and pupils equal, round and reactive to light (PERRL) NEUROLOGIC EXAMINATION: Mental status: Alert and interactive Oriented to full date and location Oriented to person Speech fluent with no evidence of aphasia Cranial Nerves facial symmetry Gait/Stance: Posture sitting in bed, earlier walking in room with no difficulties Strength: biceps tricep deltoids, hip flex 5/5 bilaterally Current Inpatient Medications Medications (Trade) Dose Ordered Sig/Dru Route Start Time Stop Time Status Last Admin Dose Admin Acetaminophen (Tylenol Tab) 650 mg Q4H PRN PO 11/10/16 02:00 12/10/16 01:59 Nitroglycerin (Nitrostat Tab) 0.4 mg UD PRN SL 11/10/16 02:00 12/10/16 01:59 Aspirin (Ecotrin Tab) 81 mg QAM PO 11/11/16 09:00 12/11/16 08:59 11/12/16 08:06 81 MG Miscellaneous (Iv Fluids Completed) 1 ea PRN PRN N/A 11/10/16 02:30 11/10/17 02:29 Ondansetron HCl (Zofran Inj) 4 mg Q6H PRN IV. 11/10/16 10:00 12/10/16 09:59 11/12/16 08:07 4 MG Lisinopril (Zestril Tab) 5 mg QAM PO 11/12/16 09:00 12/12/16 08:59 11/12/16 09:07 5 MG Metoprolol Tartrate (Lopressor Tab) 25 mg BID PO 11/12/16 21:00 12/10/16 08:59 Impression 70 year old female with numbness and tingling in right fingers and elevated blood pressure Plan 1. no acute finding on MRI brain 2. continue aspirin 81 mg for vascular protection 3. LDL <70 4. optimize treatment for blood pressure issues and Raynauds - work up on going 5. likely discharge tomorrow 6. cock up splints bilaterally at night will sign off for now. will be available as needed schedule with neurology JUAN Javier schedule 3-4 weeks I have discussed above patient with Dr Jaida Lozoya, neurology No further sx, will sign off, see prior rec, pt should see us in follow-up post discharge. CHIO Lozoya MD
[2016-11-12] MEDS ORDERED: LABETALOL HCL IV 5 MG/ML 20ML IV SCH (19:30)
[2016-11-12] MEDS ORDERED: LISINOPRIL 5 MG TAB PO ONE (19:45)
[2016-11-12] MEDS ORDERED: LISINOPRIL 10 MG TAB PO SCH (21:00)
[2016-11-13 00:07] VITALS: BP 154/87; PULSE 68; TEMP 36.8; O2SAT 98
[2016-11-13 03:35] VITALS: BP_SYST 185; BP_SYST 190; BP_DIAS 76; BP_DIAS 83; PULSE 75; TEMP 36.7; O2SAT 98
[2016-11-13] MEDS ORDERED: NURSING VERBAL MED ORDER ONE (03:45)
[2016-11-13] MEDS ORDERED: HydrALAZINE 10 MG TAB PO STA (04:24)
[2016-11-13 07:11] VITALS: BP 117/77; PULSE 88; TEMP 36.4; O2SAT 95
[2016-11-13 07:16] LABS: BASO % 0.6 %; BASO ABS # 0.03 K/uL (0-0.2); COMPLETE YES; EOS % 0.6 %; HEMATOCRIT 41.1 % (37-47); IG% 0.2 %; LYMPH % 30.1 %; LYMPH ABS # 1.63 K/uL (1.2-3.4); MEAN CELL VOLUME 88.4 fL (80-100); MEAN CORPUSCULAR HEMOGLOBIN 29.7 pg (25-34); MEAN CORPUSCULAR HGB CONC 33.6 g/dl (32-36); MEAN PLATELET VOLUME 10.6 fL (7.4-10.4); NEUT % 56.5 %; PLATELET COUNT 277 K/uL (130-400); RED BLOOD COUNT 4.65 M/uL (4.2-5.4); WHITE BLOOD COUNT 5.42 K/uL (4.8-10.8)
[2016-11-13 07:56] LABS: CALCIUM 8.9 mg/dl (8.5-10.1); CREATININE 0.76 mg/dl (0.60-1.20); MAGNESIUM 2.4 mg/dl (1.8-2.4); POTASSIUM 4.1 mmol/L (3.5-5.1)
[2016-11-13] MEDS ORDERED: LISINOPRIL 10 MG TAB PO SCH ×2 (09:00)
[2016-11-13] MEDS ORDERED: LISINOPRIL 5 MG TAB PO SCH (09:00)
[2016-11-13] MEDS: ASPIRIN 81 MG ECTAB PO SCH (09:03)
[2016-11-13] MEDS: METOPROLOL TARTRATE 25 MG TAB PO SCH (09:03)
[2016-11-13 10:14] VITALS: BP 136/75; PULSE 68
[2016-11-13 11:17] VITALS: BP 129/75; PULSE 63; TEMP 36.6; O2SAT 100
--- NOTE | 2016-11-13 13:36 | Progress Note ---
Medicine Progress Note Date & Time of Visit: Nov 13, 2016 at 13:31. Subjective patient seen resting in bed, comfortable in good spirits states she feels much better denies dizziness, chest pain, headache, dyspnea, palpitations no paresthesias, focal neuro deficits no other symptoms Objective Last 8 Hrs Date Time Temp Pulse Resp B/P (MAP) Pulse Ox O2 Delivery O2 Flow Rate FiO2 11/13/16 12:00 Room Air 11/13/16 11:17 36.6 63 17 129/75 (93) 100 Room Air 11/13/16 10:14 68 136/75 (95) 11/13/16 08:00 Room Air 11/13/16 07:11 36.4 88 19 117/77 (90) 95 Room Air Physical Exam: General- oriented x 3, not in distress, speaks in sentences with no effort Eyes- anicteric Neck- no JVD Lungs- clear breath sounds bilateral Heart- regular rhythm; no murmur, normal rate Abdomen- normal bowel sounds, soft, nontender Extremities- no pretibial edema, no calf tenderness right hand- no erythema/cyanosis/ swelling/tenderness warm, good radial pulse Neuro- alert, oriented x 3; no gross focal neuro deficits Skin- warm & dry Laboratory Results: Last 24 Hours Test 11/13/16 07:04 White Blood Count 5.42 K/uL Red Blood Count 4.65 M/uL Hemoglobin 13.8 g/dL Hematocrit 41.1 % Mean Corpuscular Volume 88.4 fL Mean Corpuscular Hemoglobin 29.7 pg Mean Corpuscular Hemoglobin Concent 33.6 g/dl Platelet Count 277 K/uL Mean Platelet Volume 10.6 fL Neutrophils (%) (Auto) 56.5 % Lymphocytes (%) (Auto) 30.1 % Monocytes (%) (Auto) 12.0 % Eosinophils (%) (Auto) 0.6 % Basophils (%) (Auto) 0.6 % Neutrophils # (Auto) 3.07 K/uL Lymphocytes # (Auto) 1.63 K/uL Monocytes # (Auto) 0.65 K/uL Eosinophils # (Auto) 0.03 K/uL Basophils # (Auto) 0.03 K/uL RDW Standard Deviation 42.0 fL RDW Coefficient of Variation 13.2 % Immature Granulocyte % (Auto) 0.2 % Immature Granulocyte # (Auto) 0.01 K/uL Sodium Level 139 mmol/L Potassium Level 4.1 mmol/L Chloride Level 105 mmol/L Carbon Dioxide Level 27 mmol/L Anion Gap 7.0 mmol/L Blood Urea Nitrogen 17 mg/dl Creatinine 0.76 mg/dl Est Creatinine Clear Calc Drug Dose 49.3 ml/min Estimated GFR () 90.8 Estimated GFR (Non- 78.4 BUN/Creatinine Ratio 22.0 Random Glucose 90 mg/dl Calcium Level 8.9 mg/dl Magnesium Level 2.4 mg/dl Assessment & Plan 70 year old female with history of hypertension, Raynaud's presenting with episodes of paresthesias on the face and extremities. PARESTHESIAS, FACE AND EXTREMITIES - acute CVA ruled out Raynaud's attacks? - CT head: microvascular changes Brain MRI, MRA: mild microvascular ischemic changes Carotid Doppler US: unrevealing - Aspirin 81mg started - added Norvasc 2.5mg po daily--> did not tolerate (flushing, lightheaded) may need Rheum outpatient referral -- d/c on Aspirin 81mg po daily trial of wrist splint Hypertensive urgency -- (+) BP elevation hospital day 2 -- required PRN Labetalol 10mg IV daily Lisinopril started and titrated up to 10mg Metoprolol increased from 12.5mg bid to 25mg po bid -- renal artery US: no renal artery stenosis plasma renin/aldosterone: pending, follow up -- BP improved to 129/75 asymptomatic -- d/c on: Metoprolol 25mg po BID Lisinopril 10mg po daily monitor as outpatient follow up renin and aldosterone levels Hyperlipidemia, not on statin therapy. -- LDL 93 HDL 84 monitor as outpatient Hypokalemia secondary to diarrhea, rule out Clostridium difficile recent Keflex rx for cellulitis. -- repleted Mg normal -- K and Mg normal -- monitor as outpatient DVT prophylaxis -- hold Lovenox for uncontrolled HTN SCDs for now Full code Dispo anticipate d/c home today Current Inpatient Medications: Current Inpatient Medications Medications (Trade) Dose Ordered Sig/Dru Route Start Time Stop Time Status Last Admin Dose Admin Acetaminophen (Tylenol Tab) 650 mg Q4H PRN PO 11/10/16 02:00 12/10/16 01:59 Nitroglycerin (Nitrostat Tab) 0.4 mg UD PRN SL 11/10/16 02:00 12/10/16 01:59 Aspirin (Ecotrin Tab) 81 mg QAM PO 11/11/16 09:00 12/11/16 08:59 11/13/16 09:03 81 MG Miscellaneous (Iv Fluids Completed) 1 ea PRN PRN N/A 11/10/16 02:30 11/10/17 02:29 Ondansetron HCl (Zofran Inj) 4 mg Q6H PRN IV. 11/10/16 10:00 12/10/16 09:59 11/12/16 08:07 4 MG Metoprolol Tartrate (Lopressor Tab) 25 mg BID PO 11/12/16 21:00 12/10/16 08:59 11/13/16 09:03 25 MG Lisinopril (Zestril Tab) 10 mg DAILY PO 11/13/16 09:00 12/13/16 08:59 11/13/16 09:04 10 MG
[2016-11-13 14:23] LABS: URINE APPEARANCE CLEAR (CLEAR); URINE BILIRUBIN NEG (NEG); URINE COLOR YELLOW; URINE NITRITE NEG (NEG); URINE PH 6.5 (4.5-7.5); URINE SPECIFIC GRAVITY 1.013 (1.000-1.030); UROBILINOGEN NEG (NEG)
[2016-11-13 14:28] LABS: MANUAL MICROSCOPIC REQUIRED? NO; REVIEW REQ? NO
[2016-11-13] MEDS ORDERED: LSN10 PO (14:46)
[2016-11-13] MEDS ORDERED: ASPEC81 PO (14:46)
[2016-11-13] MEDS ORDERED: LPR25 PO (14:46)
--- NOTE | 2016-11-13 14:53 | Discharge Instructions ---
Discharge Instructions Date of Service Nov 13, 2016. Admission Reason for Admission: TIA Discharge Discharge Diagnosis / Problem: ELEVATED BLOOD PRESSURE, HAND PARESTHESIAS Discharge Goals Goal(s): Diagnostic testing, Therapeutic intervention Activity Recommendations Activity Limitations: as noted below (NO HEAVY EXERTION UNTIL RE-EVALUATED BY PRIMARY CARE PHYSICIAN) . Instructions / Follow-Up Instructions / Follow-Up PLEASE REVIEW YOUR NEW MEDICATION LIST AND FOLLOW INSTRUCTIONS CAREFULLY. HOLD METOPROLOL AND LISINOPRIL IF YOUR SYSTOLIC BLOOD PRESSURE IS 110 OR LESS. IF YOUR SYSTOLIC BLOOD PRESSURE IS PERSISTENTLY ABOVE 160, PLEASE CALL YOUR PRIMARY CARE PHYSICIAN. TAKE ASPIRIN WITH FOOD. USE WRIST SPLINT DAILY. PLEASE FOLLOW UP WITH PRIMARY CARE PHYSICIAN DR. VELASQUEZ ON Friday11/15/16 AT 11:20AM. Current Hospital Diet Patient's current hospital diet: AHA Diet (Heart Healthy) Discharge Diet Recommended Diet: AHA Diet (Heart Healthy) Pending Studies Studies pending at discharge: no Laboratory Results Lipid Panel Test 11/10/16 06:57 Range/Units Triglycerides Level 34 0-150 mg/dl Cholesterol Level 184 0-200 mg/dl HDL Cholesterol 84 mg/dl Cholesterol/HDL Ratio 2.2 LDL Cholesterol, Calculated 93 mg/dl Medical Emergencies . Who to Call and When: Medical Emergencies: If at any time you feel your situation is an emergency, please call 911 immediately. . Non-Emergent Contact Non-Emergency issues call your: Primary Care Provider Call Non-Emergent contact if: you have a fever, your pain is not controlled, you have any medication questions . Past History Medical & Surgical History: (1) Hypertensive urgency (2) Paresthesia of right arm (3) Benign neoplasm of colon (4) Osteoporosis (5) Anxiety (6) Vitamin D deficiency (7) Dyslipidemia (8) Raynauds syndrome (9) S/p reduction of bowel obstruction (10) S/P appendectomy (11) S/p treatment of ectopic . "Provider Documentation" section prepared by Julio C Virgen. . VTE Core Measure Inpt VTE Proph given/why not?: Enoxaparin (Lovenox)SQ
[2016-11-13 15:10] VITALS: BP 129/75; PULSE 63; TEMP 36.6; O2SAT 100
--- NOTE | 2016-11-13 19:36 | Discharge Summary ---
Discharge Summary Date of Service Nov 13, 2016. Discharge Summary Admission Date: Nov 12, 2016 at 12:25 Discharge Date: Nov 13, 2016 Discharge Disposition: Home Principal Diagnosis: PARESTHESIAS, FACE AND EXTREMITIES Secondary Diagnoses/Problems: HYPERTENSIVE URGENCY; Please refer to hospital course below for further details. Procedures: Brain MRI WITHOUT CONTRAST HISTORY: Right-sided arm and face paresthesias. Stroke TECHNIQUE: Multiplanar multisequence MRI of the brain was performed without the use of contrast. COMPARISON STUDY: Head CT 11/10/2016. FINDINGS: There is no mass, hematoma, midline shift, or acute infarct. Mild mucosal thickening within the left maxillary sinus. The mastoid air cells are clear. The ventricles and sulci are within normal limits. Scattered foci of T2 hyperintensity seen within the periventricular and subcortical white matter are nonspecific but suggestive of mild microvascular ischemic changes. The major vascular flow voids at the skull base are well-maintained. IMPRESSION: No acute intracranial abnormality. Scattered foci of T2 hyperintensity seen within the periventricular and subcortical white matter are nonspecific but favor microvascular ischemic change. Brain MRA: IMPRESSION: No significant stenosis, occlusion, or aneurysm within the [place]. Renal arterial Doppler DUPLEX RENAL ARTERY CLINICAL HISTORY: r/o renal artery stenosis hypertension TECHNIQUE: Doppler ultrasound COMPARISON STUDY: None FINDINGS: Normal arterial waveforms throughout. Normal impedance characteristics. IMPRESSION: Normal study. No evidence for renal arterial stenosis. Carotid Artery US: IMPRESSION: No hemodynamically significant stenosis seen within the carotid arteries. Consultations: Neurologist Dr. Lozoya Pending Studies/Follow-Up: Please refer to hospital course below. Medication Reconciliation New Medications: Aspirin (Aspirin EC Low Dose) 81 Mg Ectab 81 MG PO QAM for 30 Days, #30 TABS 2 Refills take with full stomach Lisinopril (Zestril) 10 Mg Tab 10 MG PO DAILY for 30 Days, #30 TAB 2 Refills Metoprolol Tartrate (Lopressor) 25 Mg Tab 25 MG PO BID for 30 Days, #60 TAB 2 Refills Continued Medications: Calcium W/ Magnesium (Calcium Magnesium 750) 1 Tab Tab 1 TAB PO DAILY @ NOON Cholecalciferol (Vitamin D3) 1,000 Unit Tab 1 TAB PO DAILY for 90 Days, #90 TAB 3 Refills Discontinued Medications: Metoprolol Tartrate (Lopressor) (Lopressor) 25 Mg Tab 12.5 MG PO BID, 0 Refills Admission Information HPI (per Admitting provider): Medical history is significant for hypertension, hyperlipidemia, anxiety as per records and Raynaud's syndrome. In the last 2 weeks, the patient noted tingling and numbness in the right upper extremity, both sides of her face and legs. Transient symptoms followed by four more recurrences in the next 2 weeks. Last night, the symptoms distressing, more prolonged. achy frontal ZHANG sx She admits to some stress at home. Patient was brought to the Emergency Room. Had subsequent improvement in symptoms. Physical Exam (per Admitting): VITAL SIGNS: Blood pressure was noted to be 208/99 later 178/89, pulse rate 94, RR 20 T 37 O2sats 98 on room air. GENERAL: Noted to be slightly anxious, in no respiratory distress, looks younger for stated age. SKIN: Normal color. HEENT: [place] palpebral conjunctivae. Dry mucosa. NECK: No JVD. Supple. CHEST: Clear to auscultation. HEART: Regular rate and rhythm. ABDOMEN: Soft. NT EXTREMITIES: min R thumb swelling. min tenderness NEUROLOGIC: No gross focality. Hospital Course 70 year old female with history of hypertension, Raynaud's presenting with episodes of paresthesias on the face and extremities. PARESTHESIAS, FACE AND EXTREMITIES - acute CVA ruled out possible Raynaud's attacks vs. Carpal Tunnel syndrome - CT head: no acute infarcts Brain MRI, MRA: mild microvascular ischemic changes Carotid Doppler US: unrevealing - Neurology consulted, Aspirin 81mg started trial of wrist splint - started trial of Norvasc 2.5mg po daily--> did not tolerate (flushing, lightheadedness) may need Rheum outpatient referral HYPERTENSIVE URGENCY -- (+) BP elevation up to 190 systolic noted while admitted -- required PRN Labetalol 10mg IV daily Lisinopril started and titrated up to 10mg Metoprolol increased from 12.5mg bid to 25mg po bid -- renal artery US: no renal artery stenosis plasma renin/aldosterone: pending, follow up -- BP improved to 129/75 asymptomatic -- d/c on: Metoprolol 25mg po BID Lisinopril 10mg po daily monitor as outpatient follow up renin and aldosterone levels Hyperlipidemia, not on statin therapy. -- LDL 93 HDL 84 monitor as outpatient Hypokalemia secondary to diarrhea, rule out Clostridium difficile recent Keflex rx for cellulitis. -- repleted -- K and Mg normal -- monitor as outpatient Dispo d/c home ff up with PCP this Friday Total time spent on discharge = 40 minutes This includes examination of the patient, discharge planning, medication reconciliation, and communication with other providers. Discharge Instructions Discharge Instructions Date of Service Nov 13, 2016. Admission Reason for Admission: TIA Discharge Discharge Diagnosis / Problem: ELEVATED BLOOD PRESSURE, HAND PARESTHESIAS Discharge Goals Goal(s): Diagnostic testing, Therapeutic intervention Activity Recommendations Activity Limitations: as noted below (NO HEAVY EXERTION UNTIL RE-EVALUATED BY PRIMARY CARE PHYSICIAN) . Instructions / Follow-Up Instructions / Follow-Up PLEASE REVIEW YOUR NEW MEDICATION LIST AND FOLLOW INSTRUCTIONS CAREFULLY. HOLD METOPROLOL AND LISINOPRIL IF YOUR SYSTOLIC BLOOD PRESSURE IS 110 OR LESS. IF YOUR SYSTOLIC BLOOD PRESSURE IS PERSISTENTLY ABOVE 160, PLEASE CALL YOUR PRIMARY CARE PHYSICIAN. TAKE ASPIRIN WITH FOOD. USE WRIST SPLINT DAILY. PLEASE FOLLOW UP WITH PRIMARY CARE PHYSICIAN DR. VELASQUEZ ON Friday11/15/16 AT 11:20AM. Current Hospital Diet Patient's current hospital diet: AHA Diet (Heart Healthy) Discharge Diet Recommended Diet: AHA Diet (Heart Healthy) Pending Studies Studies pending at discharge: no Laboratory Results Lipid Panel Test 11/10/16 06:57 Range/Units Triglycerides Level 34 0-150 mg/dl Cholesterol Level 184 0-200 mg/dl HDL Cholesterol 84 mg/dl Cholesterol/HDL Ratio 2.2 LDL Cholesterol, Calculated 93 mg/dl Medical Emergencies . Who to Call and When: Medical Emergencies: If at any time you feel your situation is an emergency, please call 911 immediately. . Non-Emergent Contact Non-Emergency issues call your: Primary Care Provider Call Non-Emergent contact if: you have a fever, your pain is not controlled, you have any medication questions . Past History Medical & Surgical History: (1) Hypertensive urgency (2) Paresthesia of right arm (3) Benign neoplasm of colon (4) Osteoporosis (5) Anxiety (6) Vitamin D deficiency (7) Dyslipidemia (8) Raynauds syndrome (9) S/p reduction of bowel obstruction (10) S/P appendectomy (11) S/p treatment of ectopic . "Provider Documentation" section prepared by Julio C Virgen. . VTE Core Measure Inpt VTE Proph given/why not?: Enoxaparin (Lovenox)SQ
== END 2016-11-13 15:44 | disposition home or self-care (01) | DRG 547 ==
LOC: C.EDB 23:01 → C.2T 11-10 01:14 → ENRESERV 11-10 01:19 → OBSVTOIN 11-12 12:25
PROVIDERS: ADMIT Internal Medicine; ATTEND Internal Medicine
DX: I73.00 Raynaud's syndrome without gangrene (principal); I10 Essential (primary) hypertension; E87.6 Hypokalemia; E78.5 Hyperlipidemia, unspecified; F41.9 Anxiety disorder, unspecified; R19.7 Diarrhea, unspecified; Z79.899 Other long term (current) drug therapy; Z82.3 Family history of stroke

== ENCOUNTER 2016-12-23 21:37 | Emergency (ER) | payer OTHER ==
[~2016-12-23] VITALS: Ht 154.9 cm; Wt 50.9 kg
[~2016-12-23 21:37] MED LIST changes: +ASPEC81 PO; -ATV5 PO; +CALC1TAB25 PO; +CHOL1000 PO; +LPR25 PO; +LSN10 PO; -METO25TA56 PO; -ONDA4TAB46 PO; -ZNTT/150 PO
[2016-12-23 21:40] VITALS: TEMP 36.6; Ht 154.9 cm; Wt 50.9 kg
--- NOTE | 2016-12-23 22:12 | EMERGENCY ROOM VISIT NOTE ---
History Report prepared by Summer: Radha Moses Under the Supervision of: Dr. Tej Mcfadden D.O. First contact with patient: 21:43 Chief Complaint: HYPERTENSION Stated Complaint: HIGH BLOOD PRESSURE - R HAND TINGLING History of Present Illness The patient is a 71 year old female who presents to the Emergency Room with complaints of an episode of hypertension starting five hours ago. The patient states that she felt fine this morning and was taking care of her grandson. She states that they went on a bike ride, went shopping today, and did some lawn work. She reports that she went in for a snack of watermelon and water this evening. She states that after her grandson left, she checked her blood pressure. She states it was 160/60. She reports that she then checked it 2 more times later this evening and they read 170/70 and 180/80. She reports that she started to feel nauseous and a tingling in her hands. She notes that she was trying to relax. She reports that she was in the ED 6 weeks ago for similar symptoms. She notes that her blood pressure was 112/58. She notes that she took her medication like normal at 1000 this morning and again at 1845 this evening with no relief. The patient complains of her fingers being swollen yesterday and today from the heat. Source of History: patient Onset: five hours ago Position: other (global) Quality: other (global) Timing: other (episode) Associated Symptoms: + nausea Note: The patient complains of tingling in her hands and her fingers being swollen. Review of Systems See HPI for pertinent positives and negatives. A total of ten systems were reviewed and were otherwise negative. Past Medical & Surgical Medical Problems: (1) Anxiety (2) Benign neoplasm of colon (3) Dyslipidemia (4) HTN (hypertension) (5) Hypertensive urgency (6) Osteoporosis (7) Palpitations (8) Raynauds syndrome (9) S/p reduction of bowel obstruction (10) TIA (transient ischemic attack) (11) Vitamin D deficiency Surgical Problems: (1) S/P appendectomy (2) S/p treatment of ectopic Family History Hypertension FATHER Stroke FATHER Social History Smoking Status: Never Smoker Drug Use: none Marital Status: Housing Status: lives with significant other Current/Historical Medications Scheduled Aspirin (Aspirin EC Low Dose), 81 MG PO QAM Calcium (Ra Calcium), 500 MG PO DAILY Cholecalciferol (Vitamin D3), 1 TAB PO DAILY Lisinopril (Zestril), 20 MG PO DAILY Magnesium (Magnesium 250 mg), 250 MG PO DAILY Metoprolol Tartrate (Lopressor), 25 MG PO BID Allergies Coded Allergies: Amlodipine (Verified Allergy, Mild, Flushing, 11/11/16) Physical Exam Vital Signs Date Time Temp Pulse Resp B/P (MAP) Pulse Ox O2 Delivery O2 Flow Rate FiO2 12/24/16 00:01 140/69 12/23/16 23:36 66 16 95 12/23/16 23:31 150/62 12/23/16 23:06 71 20 96 12/23/16 23:01 184/81 12/23/16 22:58 189/81 12/23/16 22:55 68 16 98 12/23/16 22:26 70 12/23/16 22:25 77 14 97 12/23/16 22:20 98 Room Air 12/23/16 22:18 75 185/84 98 Room Air 12/23/16 21:40 36.6 82 18 205/88 96 Room Air Physical Exam GENERAL: Awake, alert, well-appearing, in no distress HENT: Normocephalic, atraumatic. Oropharynx unremarkable. EYES: Normal conjunctiva. Sclera non-icteric. NECK: Supple. No nuchal rigidity. FROM. No JVD. RESPIRATORY: Clear to auscultation. CARDIAC: Regular rate, normal rhythm. Extremities warm and well perfused. Pulses equal. ABDOMEN: Soft, non-distended. No tenderness to palpation. No rebound or guarding. No masses. RECTAL: Deferred. MUSCULOSKELETAL: Chest examination reveals no tenderness. The back is symmetrical on inspection without obvious abnormality. There is no CVA tenderness to palpation. No joint edema. LOWER EXTREMITIES: Calves are equal size bilaterally and non-tender. No edema. No discoloration. NEURO: Normal sensorium. No sensory or motor deficits noted. SKIN: No rash or jaundice noted. Medical Decision & Procedures Medications Administered Medications (Trade) Dose Ordered Sig/Dru Route Start Time Stop Time Status Last Admin Dose Admin Clonidine HCl (Catapres Tab) 0.2 mg NOW ONCE PO 12/23/16 22:30 12/23/16 22:31 DC 12/23/16 22:25 0.2 MG ED Course 2146: The patient was evaluated in room B9. A complete history and physical exam was performed. 2229: Ordered Catapres Tab 0.2 mg PO. 2350: I reevaluated the patient. She is feeling much better. Her blood pressure is 150/72. Discussed results and discharge instructions: She verbalized understanding and agreement. The patient is ready for discharge. Medical Decision Differential diagnoses include hypertension, hypertension crisis, anxiety. pt very calm, resting in no distress; bp down 150/70 at 1204am Medication Reconcilliation Current Medication List: was personally reviewed by me Blood Pressure Screening Patient's blood pressure: Elevated blood pressure Blood pressure disposition: Referred to PCP Impression Primary Impression: Hypertension Scribe Attestation The scribe's documentation has been prepared under my direction and personally reviewed by me in its entirety. I confirm that the note above accurately reflects all work, treatment, procedures, and medical decision making performed by me. Departure Information Dispostion Home / Self-Care Referrals Prema Satck D.OJane (PCP) Patient Instructions ED HTN Established, My [facility]
[2016-12-23 22:20] VITALS: O2SAT 98
[2016-12-23] MEDS ORDERED: CALC500T85 PO (22:30)
[2016-12-23] MEDS ORDERED: LISI-725 PO (22:30)
[2016-12-23] MEDS ORDERED: CLONIDINE HCL 0.1 MG TAB PO ONE (22:30)
[2016-12-23] MEDS ORDERED: MAGN250T3 PO (22:30)
[2016-12-24 00:20] VITALS: BP 112/62; PULSE 81; O2SAT 97
== END 2016-12-24 00:20 | disposition home or self-care (01) ==
LOC: C.EDB 21:38
DX: I10 Essential (primary) hypertension (principal); F41.9 Anxiety disorder, unspecified; E78.5 Hyperlipidemia, unspecified; M81.0 Age-related osteoporosis without current pathological fracture; I73.00 Raynaud's syndrome without gangrene; Z86.73 Personal history of transient ischemic attack (TIA), and cerebral infarction without residual deficits; E55.9 Vitamin D deficiency, unspecified; Z82.49 Family history of ischemic heart disease and other diseases of the circulatory system; Z79.82 Long term (current) use of aspirin; Z79.899 Other long term (current) drug therapy